=== PATIENT | female | born 1955 | race Caucasian/White ===

== ENCOUNTER 2025-07-01 12:22 | Inpatient (IN) | payer MEDICARE, OTHER, SELFPAY ==
[2025-06-27 10:56] LABS: Hematocrit 42.5 % (37.0-47.0); Hemoglobin 13.7 g/dL (12.0-16.0); Mean Corp Hgb Conc. 32.2 g/dL (33.0-37.0); Mean Corpuscular Volume 87.3 fL (81.0-99.0); Nucleated Red Blood Cells % 0 %; Platelet Count 278 10^3/uL (130-400); Red Cell Dist. Width 13.2 % (11.5-14.5)
[2025-06-27 11:32] LABS: ALT (SGPT) 25 U/L (0-35); AST (SGOT) 23 U/L (14-36); Albumin 4.3 g/dl (3.5-5.0); Alkaline Phosphatase 96 U/L (38-126); Blood Urea Nitrogen 13 mg/dl (7-17); Calcium 9.0 mg/dl (8.4-10.2); Carbon Dioxide 28 mmol/L (22-30); Chloride 104 mmol/L (98-107); Glucose 106 mg/dl (70-99); Potassium 4.6 mmol/L (3.5-5.1); Sodium 140 mmol/L (135-145); Total Protein 7.4 g/dl (6.3-8.2); eGFR > 60.00
[2025-06-27 12:10] LABS: Vitamin D, 25-OH*** 43.1 ng/mL (30-80)
[2025-06-27 13:45] LABS: Prealbumin (Transthyretin) 23.3 mg/dl (17.6-36.0)
[2025-07-01] VITALS (11 sets, daily range): BP systolic 0–190; BP diastolic 65–93; PULSE 71–76; BMI 34.8
[2025-07-01] MEDS: TYLENOL 1000 MG PO (13:36)
[2025-07-01] MEDS: VANCOCIN 530 MG IV (14:09)
[2025-07-01] MEDS: NORMOSOL-R/PLASMALYTE-A 1000 IV (14:09)
[2025-07-01] MEDS: LOVENOX 40 MG SC (14:10)
--- NOTE | 2025-07-01 19:24 | PTCARENOTE ---
Pt admitted at 1815 from PACU via bed. Pt oriented to room. Call cardenas given. Plan of care discussed with verbalized understanding. Admission database completed. Report given to oncoming shift. Daughters at bedside.
[2025-07-01] MEDS: COLACE 100 MG PO (19:46)
[2025-07-01] MEDS: LIPITOR 40 MG PO (19:46)
[2025-07-01] MEDS: D5/0.45%NSS with KCL 20 MEQ 1000 IV (19:54)
[2025-07-01] MEDS: TYLENOL 500 MG PO (20:24)
[2025-07-02] MEDS: TYLENOL 500 MG PO ×2 (00:37→10:00)
[2025-07-02 03:26] VITALS: BP 137/57
[2025-07-02] MEDS: SYNTHROID 125 MCG PO (05:53)
[2025-07-02 06:03] LABS: Hematocrit 37.5 % (37.0-47.0); Hemoglobin 12.3 g/dL (12.0-16.0)
[2025-07-02 06:26] LABS: Blood Urea Nitrogen 10 mg/dl (7-17); Calcium 8.3 mg/dl (8.4-10.2); Carbon Dioxide 25 mmol/L (22-30); Chloride 107 mmol/L (98-107); Estimated Creatinine Clearance 99 ml/min; Glucose 164 mg/dl (70-99); Potassium 5.1 mmol/L (3.5-5.1); Sodium 138 mmol/L (135-145); eGFR > 60.00
[2025-07-02] MEDS: ULTRAM 50 MG PO (07:45)
[2025-07-02 07:50] VITALS: BP 148/71
--- NOTE | 2025-07-02 08:17 | W.PN.UPDATE ---
Update Note
Progress Note Update
the pt is POD #1 S/P simple right mastectomy for the treatment of recurrent right breast carcinoma. She is doing well tolerating PO intake and Tylenol for discomfort. Flaps are viable with no evidence of bleeding. Plan to D/C home with VNA in place.
office visit scheduled for 07/17/25
--- NOTE | 2025-07-02 08:24 | W.DS.TRANS ---
DC Summary - [place] Work[facility]
-
Discharge Instructions:
Sleep Apnea Risk Low
Discharge Diagnosis/Procedures Recurrent right breast ca; right mastectomy
Diet No restrictions
Additional Diets take extra protein for the next 8 weeks
Activity No strenuous activity
Driving Restrictions when you feel safe to do so
Bathing Restrictions OK to Shower
Other Services VN
Wound Care replace dressings daily and strip and empty
drain; record drainage
Instructions:
Stand-Alone Forms:
Changes to Home Medications: No
Discharge Medications:
DC Medications w/original date entered in [facility]
Vitamin D3 2,000 - 3,000 units PO NOON 06/27/25
atorvastatin 40 mg tablet 40 mg PO HS 06/27/25
levothyroxine 125 mcg tablet (Synthroid) 125 mcg PO DAILY 06/27/25
magnesium 250 mg tablet 250 mg PO NOON 06/27/25
htwyrceg-rbt-qppfl ac 400 mcg-calcium carb 500 mg-vit K1 20 mcg tablet (Women's 50 Plus Multivitamin) 1 tab PO NOON 06/27/25
acetaminophen 500 mg tablet (Tylenol Extra Strength) 500 mg PO Q4HPRN PRN Pain >2/10 #30 tabs 07/02/25
Home Medication Changes
Pending Results: Yes (pathology)
[2025-07-02] MEDS: OSCAL 500 + D 1000 MG PO (08:32)
[2025-07-02] MEDS: COLACE 100 MG PO (08:32)
[2025-07-02] MEDS: PROTONIX 40 MG PO (08:32)
[2025-07-02] MEDS: MAGNESIUM OXIDE 400 MG PO (08:32)
[2025-07-02] MEDS: D5/0.45%NSS with KCL 20 MEQ IV (08:32)
--- NOTE | 2025-07-02 08:57 | CM ---
Referral sent to [facility] via [facility]. Patient is discharged.
--- NOTE | 2025-07-02 09:52 | CM ---
Reviewed the chart notes and spoke with the patient at the bedside. Patient resides alone in a [facility], two steps to enter. The patient's daughter will be staying with her until next Monday. The patient reports no DME/VN/SNF in the past.
The patient confirmed pharmacy of choice is [facility]. CM continues to be available to patient/family and is monitoring medical plan for needs at discharge.
Plan: Discharge to home with VN services. Referral sent in Care Port.
--- NOTE | 2025-07-02 10:38 | VNURNOTE ---
Home Health Liaison met with patient and daughter at bedside to discuss [facility] nurse/therapy, visits, schedule and homebound status. Patient is agreeable and understands that visits at home will be 2-3 x per week to assess and teach medical and
drain management. Patient is aware that [facility] will contact them for start of care in 1-2 days after discharge from . Provided contact number for [facility].
[facility] referral accepted in [facility].
[2025-07-02 10:56] VITALS: BP 136/76
--- NOTE | 2025-07-02 16:35 | W.IMMPOSTOP ---
Surgical Immed Post Op Note
-
Primary Surgeon: Myranda
Assisting Surgeon: None
Pre-op Diagnosis: S/P bilateral mastectomies, left breast radiation, bilateral ventral wall hernias, umbilical hernia
Post-op Diagnosis: Same
Procedure Performed: Bilateral ventral wall repair with mesh, umbilical hernia repair, Plastic surgery performed bilateral MARIBELL flaps
Anesthesia Type: GET
Specimen / Cultures: right internal mammary node, bilateral mastectomy skin and tissue
Estimated Blood Loss: 150cc
Complications: None
Operative Findings: None
--- NOTE | 2025-07-02 16:39 | OR.RPT ---
Operative Report
Operative Report
Date of procedure: 07/01/2025
Surgeon: Myranda
Preoperative diagnosis: Recurrent right breast carcinoma
Postoperative diagnosis: Same
Procedure right simple mastectomy
The patient is a 70-year-old female with a history of bilateral breast carcinoma treatment. The right side was treated with breast conservation the patient has not developed recurrence. She presents for simple mastectomy. Patient was prepped in
the same-day surgical services unit she verified site and procedure and DVT and antibiotic prophylaxis were provided. She was taken to the operating room and in the supine position general anesthesia was induced. Right breast was prepped and
draped in the usual sterile fashion and all team members performed an appropriate timeout. Oz incision was made sharply with the blade and skin flaps were elevated using the PlasmaBlade. This was quite vascular due to the recurrence and
control was maintained with the cautery or using 3-0 silk ties or 3-0 silk suture ligatures. Once the skin flaps have been elevated superiorly and inferiorly the breast was taken off the chest wall and superior to inferior direction. This was
oriented and sent for permanent analysis. At the site of the old original tumor there was some dense fibrotic tissue adherent to the pectoralis muscle which was excised and oriented as well. Hemostasis was carefully maintained. A pexed to block
was performed using 0.25% Marcaine plain the wound was closed over a flat Errol-Vargas drain secured to the skin using 2-0 nylon and skin was closed using simple interrupted 3-0 plain and jose francisco on skin. A sterile compressive dressing was
applied. All sponge needle and instrument counts were correct and the patient was transferred to the recovery room in stable condition()
== END 2025-07-02 11:04 | disposition home health service (06) | DRG 583 ==
LOC: 2 SOUTH 12:22
PROVIDERS: ADMITTING PHYSICIAN Surgery; FAMILY PHYSICIAN Family Medicine
PROC: 0HTT0ZZ Resection of Right Breast, Open Approach (ICD-10-PCS; 2025-07-01)
DX: C50.911 Malignant neoplasm of unspecified site of right female breast (principal); E78.5 Hyperlipidemia, unspecified; E03.9 Hypothyroidism, unspecified; Z60.2 Problems related to living alone; Z79.890 Hormone replacement therapy
CPT/HCPCS: 36415; 80048; 80053; 82306; 84134; 85014; 85018; 85025; 88307; 93005; C1729; L8000

== ENCOUNTER → 2025-07-18 12:57 | Outpatient (REF) | payer MEDICARE, OTHER, SELFPAY | LOC: HWRAD 12:57 | PROVIDERS: ATTENDING PHYSICIAN Surgery; FAMILY PHYSICIAN Family Medicine | DX: R19.00 Intra-abdominal and pelvic swelling, mass and lump, unspecified site (principal) | CPT/HCPCS: 76830; 76856 ==

== ENCOUNTER 2025-07-23 06:18 | Day surgery (SDC) | payer MEDICARE, OTHER, SELFPAY ==
[2025-07-23] VITALS (10 sets, daily range): BP systolic 0–161; BP diastolic 61–74; BMI 33.5
[2025-07-23] MEDS: TYLENOL 1000 MG PO (12:40)
[2025-07-23] MEDS: NORMOSOL-R/PLASMALYTE-A 1000 IV (12:42)
[2025-07-23] MEDS: VANCOCIN 530 MG IV (13:07)
[2025-07-23] MEDS: LOVENOX 40 MG SC (13:20)
--- NOTE | 2025-07-23 15:32 | W.IMMPOSTOP ---
Surgical Immed Post Op Note
-
Primary Surgeon: Myranda
Assisting Surgeon: None
Pre-op Diagnosis: Hematoma/seroma right mastectomy wound
Post-op Diagnosis: Same
Procedure Performed: Evacuation and drainage with washout right mastectomy wound
Anesthesia Type: LMA
Specimen / Cultures: None
Estimated Blood Loss: 20cc
Complications:None
Operative Findings: None
--- NOTE | 2025-07-23 15:33 | OR.RPT ---
Operative Report
Operative Report
Date of procedure: 07/23/2025
Surgeon: Myranda
Preoperative diagnosis: Right hematoma/seroma status post right mastectomy
Postoperative diagnosis: Same
Procedure incision, drainage, evacuation, washout right breast hematoma/seroma
The patient is a 70-year-old female who underwent a mastectomy for recurrent locally advanced right breast carcinoma. She developed a postoperative hematoma that began to drain through her incision and she presents for evacuation and washout. On
the day of the procedure the patient presented to the same-day surgical services unit where she was identified and verified site and procedure. She was prepped and DVT and antibiotic prophylaxis were provided. She was taken to the operating room
and in the supine position LMA anesthesia was induced. The right breast was prepped and draped in the usual sterile fashion with a Betadine wash. Team members performed an appropriate timeout procedure
Skin staple removed and the incision was reopened at the lateral and medial ends. Residual hematoma and proteinaceous debris was irrigated and evacuated. Wound was suctioned and all surfaces were cauterized to encourage an inflammatory response so
that the flaps would adhere to the chest wall. Additionally 3% hydrogen peroxide was instilled in suction. The wound was again irrigated with warm water and the bleeding points were controlled and the incision was closed over a round Eliecer drain
secured to the inferior flap with 2-0 nylon. Skin was closed using simple interrupted 2-0 Vicryl subcutaneous tissue and jose francisco on skin. Sterile compressive dressing was applied. All sponge needle and instrument counts were correct and the
patient was transferred to the recovery room in stable condition
([id number])
== END 2025-07-23 17:19 | disposition home or self-care (01) ==
LOC: SDS 06:18
PROVIDERS: ATTENDING PHYSICIAN Surgery
DX: C50.911 Malignant neoplasm of unspecified site of right female breast (principal); M96.843 Postprocedural seroma of a musculoskeletal structure following other procedure; Z90.11 Acquired absence of right breast and nipple
CPT/HCPCS: 21501; L8000

== ENCOUNTER → 2025-07-28 10:42 | Outpatient (REF) | payer MEDICARE, OTHER, SELFPAY | LOC: RCS 10:42 | PROVIDERS: ATTENDING PHYSICIAN Internal Medicine Hematology & Oncology; REFERRING PHYSICIAN Internal Medicine | DX: C50.811 Malignant neoplasm of overlapping sites of right female breast (principal); Z85.3 Personal history of malignant neoplasm of breast | CPT/HCPCS: 93306; 93356 ==

== ENCOUNTER → 2025-07-31 09:59 | Outpatient (REF) | payer MEDICARE, OTHER, SELFPAY ==
[2025-07-31 10:36] VITALS: BP 177/78; BP_SYST 57
[2025-07-31 12:10] VITALS: BP 164/65; BP_SYST 58
== END ==
LOC: RADI 09:59
PROVIDERS: ATTENDING PHYSICIAN Internal Medicine Hematology & Oncology; FAMILY PHYSICIAN Physical Medicine & Rehabilitation
DX: C50.811 Malignant neoplasm of overlapping sites of right female breast (principal)
CPT/HCPCS: 36561; 76937; 77001; 99152; 99153; C1788

== ENCOUNTER → 2025-09-09 07:26 | Outpatient (REF) | payer MEDICARE, OTHER, SELFPAY ==
[2025-09-09 07:45] VITALS: BP 182/57; BP_SYST 69
[2025-09-09 08:37] VITALS: BP 180/69; BP_SYST 69
[2025-09-09 08:54] VITALS: BP 180/69
== END ==
LOC: RADI 07:26
PROVIDERS: ATTENDING PHYSICIAN Internal Medicine Hematology & Oncology; FAMILY PHYSICIAN Family Medicine
DX: T82.898A Other specified complication of vascular prosthetic devices, implants and grafts, initial encounter (principal); Y82.8 Other medical devices associated with adverse incidents; C50.811 Malignant neoplasm of overlapping sites of right female breast
CPT/HCPCS: 36598

== ENCOUNTER → 2025-10-03 11:59 | Outpatient (REF) | payer MEDICARE, OTHER, SELFPAY ==
[2025-10-03 12:39] VITALS: BP 154/72; BP_SYST 93
== END ==
LOC: RADI 11:59
PROVIDERS: ATTENDING PHYSICIAN Internal Medicine Hematology & Oncology; FAMILY PHYSICIAN Family Medicine
DX: T82.524A Displacement of infusion catheter, initial encounter (principal); Y82.8 Other medical devices associated with adverse incidents; C50.811 Malignant neoplasm of overlapping sites of right female breast
CPT/HCPCS: 36573; 36590